=== PATIENT | female | born 1990 | race Caucasian/White ===

== ENCOUNTER 2017-03-21 11:36 | Outpatient (CLI) | payer SELFPAY | END 2017-03-21 11:37 | disposition critical access hospital (66) | LOC: EMS 11:36 | PROVIDERS: ATTEND Surgery | DX: R10.9 Unspecified abdominal pain (principal) | CPT/HCPCS: A0425; A0429 ==

== ENCOUNTER 2017-11-15 07:56 | Outpatient (CLI) | payer OTHER ==
[2017-11-15 13:28] LABS: ALBUMIN 4.1 g/dL (3.2-5.5); ALBUMIN/GLOBULIN RATIO 1.4 (1.0-2.2); BILIRUBIN,TOTAL 0.5 mg/dL (0.2-1.0); CALCIUM 8.9 mg/dL (8.5-10.3); CREATININE 0.7 mg/dL (0.4-1.0); TOTAL PROTEIN 7.1 g/dL (6.7-8.2)
[2017-11-15 14:29] LABS: BASOPHILS # (AUTO) 0.1 10^3/uL (0.0-0.1); BASOPHILS % (AUTO) 0.7 %; EOSINOPHILS # (AUTO) 0.3 10^3/uL (0.0-0.7); EOSINOPHILS % (AUTO) 3.2 %; LYMPHOCYTES # (AUTO) 2.4 10^3/uL (1.5-3.5); LYMPHOCYTES % (AUTO) 29.8 %; MEAN CORPUSCULAR HGB CONC 32.9 g/dL (32.0-36.0); MEAN CORPUSCULAR VOLUME 91.1 fL (81.0-99.0); MEAN PLATELET VOLUME 8.7 fL (7.9-10.8); MONOCYTES # (AUTO) 0.6 10^3/uL (0.0-1.0); MONOCYTES % (AUTO) 7.4 %; NEUTROPHILS # (AUTO) 4.7 10^3/uL (1.5-6.6); NEUTROPHILS % (AUTO) 58.9 %; PLT - PLATELET COUNT 254 10^3/uL (130-450); RED BLOOD COUNT 4.66 10^6/uL (4.20-5.40); RED CELL DISTRIBUTION WIDTH 12.4 % (12.0-15.0)
== END 2017-11-15 07:57 | disposition home or self-care (01) ==
LOC: LAB.N 07:56
PROVIDERS: ATTEND Family Medicine
DX: R25.9 Unspecified abnormal involuntary movements (principal); R53.83 Other fatigue
CPT/HCPCS: 36415; 80053; 84443; 85025

== ENCOUNTER 2017-11-26 19:03 | Outpatient (CLI) | payer OTHER ==
--- NOTE | 2017-11-27 10:55 | Ultrasound Report ---
Procedure Date: 11/26/2017 Accession Number: [id number] / [id number] Procedure: US - Pelvic w/Transvaginal CPT Code: FULL RESULT: EXAM: Pelvic w/Transvaginal DATE: 11/26/2017 8:05 PM CLINICAL HISTORY: BENIGN NEOPLASM OF RT OVARY COMPARISON: Pelvic ultrasound 03/21/2017. TECHNIQUE: Realtime transabdominal imaging performed to identify the uterus and adnexa and as an overview of other pelvic structures, followed by transvaginal imaging for better assessment of the endometrium and/or adnexa, with static image documentation. FINDINGS: Uterus: 8.7 x 2.9 x 3.8 cm, volume 50.1 cc. Anteverted position. Normal overall size and echotexture. Masses: None. Endometrium: Measurement is limited by indwelling intrauterine device, approximately 20 mm. The endometrium is otherwise unremarkable. Cervix: Unremarkable. Right Ovary/Adnexa: 2.0 x 2.3 x 2.2 cm, volume 5.3 cc. Normal echotexture. Blood flow is present. No adnexal mass is seen. Left Ovary/Adnexa: 7.7 x 6.7 x 7.2 cm, volume 195 cc. Echotexture of the ovary proper is normal with expected blood flow on color Doppler. The previously identified avascular 7.5 x 5.9 x 7.1 cm hypoechoic left adnexal mass demonstrates uniform echotexture without the typically expected features of a reticular lacelike pattern or fluid fluid level/retractile blood clot and therefore does not meet strict ultrasound criteria for hemorrhagic cyst. Free Fluid: None. Other: None. IMPRESSION: The previously seen 7.5 cm hypoechoic left adnexal mass does not meet strict ultrasound criteria for a hemorrhagic cyst. Definitive characterization by MRI is recommended. RADIA
== END 2017-11-26 19:04 | disposition home or self-care (01) ==
LOC: DI 19:03
PROVIDERS: ATTEND Obstetrics & Gynecology
DX: D27.0 Benign neoplasm of right ovary (principal)
CPT/HCPCS: 76830; 76856

== ENCOUNTER 2017-12-18 07:35 | Outpatient (CLI) | payer OTHER ==
[2017-12-18] MEDS ORDERED: GADOBUTROL 7.5 MMOL/7.5 ML VIAL ONE (09:25)
[2017-12-18] MEDS ORDERED: GADOBUTROL 7.5 MMOL/7.5 ML VIAL IVP ONE (10:01)
--- NOTE | 2017-12-18 12:40 | MRI Report ---
Procedure Date: 12/18/2017 Accession Number: [id number] / [id number] Procedure: MRI - Abdomen W/WO CPT Code: FULL RESULT: EXAM: MR ABDOMEN WITH AND WITHOUT CONTRAST MR PELVIS WITH AND WITHOUT CONTRAST EXAM DATE: 12/18/2017 10:59 AM. CLINICAL HISTORY: Mass on ovary. COMPARISON: Pelvic ultrasound from 11/26/2017 and 03/21/2017. TECHNIQUE: Multiplanar breath-hold T1, T2, and DWI sequences obtained through the abdomen and pelvis on an MR scanner. Images obtained before and after administration of 7 mL Gadavist intravenous contrast. FINDINGS: Abdomen: Lung Bases: Lung bases are clear. Included portions of the heart are unremarkable. Liver: The liver has normal size, morphology and signal. No evidence of mass or biliary dilatation. Gallbladder: The gallbladder is partially distended and appears normal with no wall thickening or stone. Pancreas: The pancreas appears normal with no mass or ductal dilatation. Spleen: The spleen appears normal. Kidneys and Adrenals: The kidneys appear normal with no mass or hydronephrosis. There are no cysts in the kidneys. The adrenals appear normal. Bowel: Stomach is mildly distended and unremarkable. Small bowel is minimally fluid-filled without evidence for obstruction. No small bowel wall thickening is identified. No omental or mesenteric nodules or masses. Small to moderate volume of stool in the colon. No diverticulitis. No enlarged retroperitoneal or mesenteric lymph nodes. There is right lower quadrant free fluid. Appendix may be partly visualized by the cecum. Appendix does not appear enlarged. Retroperitoneum: Abdominal aorta and IVC are normal in caliber. No aneurysm. No retroperitoneal adenopathy. Pelvis: Bladder: Urinary bladder is mild to moderately distended and unremarkable. Small to moderate volume of pelvic free fluid. No pelvic adenopathy. No distinct pelvic nodules are identified. No focal soft tissue thickening. Reproductive Organs: The uterus is anteverted and measures 7.9 x 3.6 x 4.2 cm. Endometrial thickness measures 5 mm. An intrauterine device is present centrally located in the endometrial cavity in expected position. Cervical mucosal contour appears unremarkable. Right ovary measures 2.7 x 2.5 x 2.9 cm. Within the right ovary a thick-walled cyst measuring 2.2 x 1.7 x 2.2 cm which may represent a complex follicular or corpus luteal cyst. Adjacent free fluid. The left ovary measures 7.3 x 7.2 x 7.3 cm. Nearly the entire left ovary is occupied by a cystic lesion measuring 6.7 x 6.5 x 5.9 cm, T1 hyperintense and T2 mildly hyperintense and heterogeneous signal intensity with T2 shading. Thin septation is seen right laterally. No abnormal enhancement of this septation is identified. No nodules are identified. The cystic lesion on the ultrasound measured 7.5 x 5.9 x 7.17 m on compared to the ultrasound from 11/26/2017 and has increased in size compared to the 03/21/2017 ultrasound. No osseous lesions are identified. Mild disk desiccation in the lower lumbar spine. IMPRESSION: MR abdomen: 1. No solid organ lesions. 2. No abdominal adenopathy. 3. No omental or mesenteric nodules. MR pelvis: 1. Left ovarian cystic lesion measuring 6.7 cm most most likely representing an endometrioma rather than a hemorrhagic cyst. 2. Right ovarian 2.2 cyst favoring a corpus luteal or follicular cyst. 3. Small to moderate volume of pelvic free fluid. 4. Intrauterine device in expected position. 5. No pelvic adenopathy. No nodules are seen within the pelvis. RADIA
== END 2017-12-18 07:36 | disposition home or self-care (01) ==
LOC: DI 07:35
PROVIDERS: ATTEND Obstetrics & Gynecology
DX: N83.9 Noninflammatory disorder of ovary, fallopian tube and broad ligament, unspecified (principal); N83.202 Unspecified ovarian cyst, left side; N83.201 Unspecified ovarian cyst, right side
CPT/HCPCS: 72197; 74183; A9585

== ENCOUNTER 2017-12-18 07:45 | Outpatient (CLI) | payer OTHER | END 2017-12-18 07:46 | disposition home or self-care (01) | LOC: DI 07:45 | PROVIDERS: ATTEND Obstetrics & Gynecology | DX: N83.9 Noninflammatory disorder of ovary, fallopian tube and broad ligament, unspecified (principal) ==

== ENCOUNTER 2018-01-08 10:24 | Outpatient (CLI) | payer OTHER ==
[2018-01-08 11:08] LABS: BASOPHILS # (AUTO) 0.1 10^3/uL (0.0-0.1); BASOPHILS % (AUTO) 0.8 %; EOSINOPHILS # (AUTO) 0.2 10^3/uL (0.0-0.7); EOSINOPHILS % (AUTO) 2.3 %; HGB - HEMOGLOBIN 14.8 g/dL (12.0-16.0); LYMPHOCYTES # (AUTO) 1.8 10^3/uL (1.5-3.5); LYMPHOCYTES % (AUTO) 19.5 %; MEAN CORPUSCULAR HEMOGLOBIN 30.5 pg (27.0-31.0); MEAN CORPUSCULAR HGB CONC 34.5 g/dL (32.0-36.0); MEAN CORPUSCULAR VOLUME 88.5 fL (81.0-99.0); MEAN PLATELET VOLUME 8.5 fL (7.9-10.8); MONOCYTES # (AUTO) 0.6 10^3/uL (0.0-1.0); MONOCYTES % (AUTO) 6.2 %; NEUTROPHILS # (AUTO) 6.4 10^3/uL (1.5-6.6); NEUTROPHILS % (AUTO) 71.2 %; PLT - PLATELET COUNT 237 10^3/uL (130-450); RED BLOOD COUNT 4.84 10^6/uL (4.20-5.40); RED CELL DISTRIBUTION WIDTH 12.9 % (12.0-15.0)
[2018-01-08 11:32] LABS: BILIRUBIN,URINE NEGATIVE (NEGATIVE); GLUCOSE, URINE (UA) NEGATIVE (NEGATIVE); KETONES,URINE (UA) NEGATIVE (NEGATIVE); LEUKOCYTE ESTERASE, URINE NEGATIVE (NEGATIVE); NITRITE,URINE NEGATIVE (NEGATIVE); OCCULT BLOOD,URINE NEGATIVE (NEGATIVE); PH,URINE 6.5 PH (5.0-7.5); PROTEIN,URINE NEGATIVE (NEGATIVE); UROBILINOGEN,URINE 0.2 (NORMAL) E.U./dL (NORMAL)
[2018-01-08 11:37] LABS: CLARITY,URINE CLEAR (CLEAR); HCG UR QUAL NEGATIVE
== END 2018-01-08 10:25 | disposition home or self-care (01) ==
LOC: LAB 10:24
PROVIDERS: ATTEND Obstetrics & Gynecology
DX: Z01.812 Encounter for preprocedural laboratory examination (principal); N83.9 Noninflammatory disorder of ovary, fallopian tube and broad ligament, unspecified
CPT/HCPCS: 36415; 81003; 81025; 85025; 86304; 86850; 86900; 86901

== ENCOUNTER 2018-01-09 06:13 | Day surgery (SDC) | payer OTHER ==
--- NOTE | 2018-01-08 12:38 | PREOP HISTORY & PHYSICAL ---
DATE OF SERVICE: 01/09/2018 Physician: Perico Fregoso MD PREOPERATIVE HISTORY AND PHYSICAL ON 01/08/2018 FOR ANTICIPATED DATE OF 01/09/2018 IDENTIFICATION: Patient is a 27-year-old, G1, P1 female. CHIEF COMPLAINT: Left lower quadrant pain. HISTORY OF PRESENT ILLNESS: Patient has noted over the last year increasing left lower quadrant pain . She has had both a CT and an MRI, which shows evidence of a 6.7 left ovarian cyst. This is compat ible with an endometrioma. She is presenting for surgical removal. PAST MEDICAL HISTORY: Patient denies any hypertensive, diabetic, cardiac, or pulmonary disease. SURGICAL HISTORY: Positive for tonsils and adenoidectomy. ALLERGIES: NONE KNOWN. CURRENT MEDICATIONS: None. HABITS: Patient smokes 10 cigarettes per day, has alcohol occasionally; denies use of any street or addictive drugs or tetrahydrocannabinol. SOCIAL HISTORY: Patient is engaged, works in a gym. FAMILY HISTORY: Positive for a grandmother with breast cancer. REVIEW OF SYSTEMS: Unremarkable. PHYSICAL EXAMINATION GENERAL: Patient is a well-developed, well-nourished, white female. She is in no acute distress at this time. VITAL SIGNS: Blood pressure is 120/80. BMI is 28.4. HEENT: Pupils are equal, round. Extraocular muscles are intact. There is no evidence of any sclera l icterus. Thyroid is not palpably enlarged. Mouth is clear. HEART: Regular rate and rhythm without murmurs. LUNGS: Lung blanton are clear without rales or wheezes. BACK: No spinal or CVA tenderness. ABDOMEN: Exam shows some vague left lower quadrant tenderness. PELVIS: On pelvic examination done previously, she has a fullness in the left adnexa. This is tende r to palpation. IMPRESSION 1. A 27-year-old, G1, P0 female. 2. A 6.7 cm left endometrioma. PLAN: We will perform laparoscopic removal of endometrioma. We will try and maintain ovary if at al l possible. Risks and benefits have been explained to patient including those but not limited to ble eding, infection, injury to the pelvic organs which include the uterus, tubes, ovaries, bowel, bladde r, and ureters. She is aware of the potential for DVT with PE, as well as postop adhesions which cou ld cause pain, bowel obstruction, and infertility. I have also explained to her the possibility of n kyle to open. TD: 01/08/2018 09:55
[2018-01-09] MEDS ORDERED: ceFAZolin 2 GM/50 ML 2 GM/50 ML BAG IV ONE (06:25)
[2018-01-09] MEDS ORDERED: LACTATED RINGERS 1,000 ML IV ONE ×4 (06:46→11:47)
--- NOTE | 2018-01-09 07:00 | ANESTHESIA ---
Pre-Anesthesia VS, & Labs - Diagnosis Ovarian inflammation - Procedure Lap ovarian cystectomy Vital Signs: Temp Pulse Resp BP Pulse Ox 36.5 C 16 112/67 99 01/09/18 06:34 01/09/18 06:34 01/09/18 06:34 01/09/18 06:34 Height 5 ft 3 in Weight (kg) 73.3 kg Body Mass Index 27.4 - NPO >8 hours - Is Patient ?: No - Lab Results Lab results reviewed: Yes Home Medications and Allergies Home Medications: Ambulatory Orders Medication Instructions Recorded Confirmed No Known Home Medications [No 01/08/18 01/08/18 Known Home Medications] Allergies/Adverse Reactions: Allergies Allergy/AdvReac Type Severity Reaction Status Date / Time acetaminophen [From Vicodin] AdvReac Emesis Verified 01/09/18 06:43 hydrocodone [From Vicodin] AdvReac Emesis Verified 01/09/18 06:43 Anes History & Medical History - Anesthetic History Anesthesia Complications: reports: No previous complications Family history of Anesthesia Complications: Denies Family history of Malignant Hyperthermia: Denies - Medical History Cardiovascular: reports: None, Other Pulmonary: reports: None Gastrointestinal: reports: None Urinary: reports: None Neuro: reports: Seizure disorder Musculoskeletal: reports: None Endocrine/Autoimmune: reports: None Blood Disorders: reports: None Skin: reports: None Smoking Status: Current every day smoker Psychosocial: reports: No issues indicated, Anxiety - Surgical History Eyes Ears Nose Throat (EENT): Tonsil/Adenoidectomy Exam General: Alert Dental: WNL Mouth Openin Fingerbreadth Neck Mobility: Normal Mallampati classification: I Thyromental Distance: greater than 6 cm Respiratory: Lungs clear Cardiovascular: Regular rate, No murmurs Cognitive Status: Within normal limits Plan Anesthesia Type: General Consent for Procedure(s) Verified and Reviewed: Yes Code Status: Attempt Resuscitation ASA classification: 2-Mild systemic disease Is this case an emergency?: No
[2018-01-09] MEDS ORDERED: PROPOFOL 200 MG/20 ML VIAL IVP ONE (07:30)
[2018-01-09] MEDS ORDERED: SODIUM CHLORIDE 0.9% 10 ML VIAL IV ONE (07:30)
[2018-01-09] MEDS ORDERED: MIDAZOLAM 2 MG/2 ML VIAL IVP ONE (07:30)
[2018-01-09] MEDS ORDERED: ONDANSETRON 4 MG/2 ML VIAL IVP ONE (07:30)
[2018-01-09] MEDS ORDERED: DEXAMETHASONE 4 MG/ML VIAL IVP ONE (07:30)
[2018-01-09] MEDS ORDERED: LIDOCAINE-MPF 2% 5 ML VIAL IM ONE (07:30)
[2018-01-09] MEDS ORDERED: ACETAMINOPHEN 1,000 MG/100 ML 100 ML IV ONE (07:30)
[2018-01-09] MEDS ORDERED: fentaNYL 100 MCG/2 ML VIAL IVP ONE (07:30)
[2018-01-09] MEDS ORDERED: PHENYLEPHRINE 50 MG/5 ML VIAL IV ONE (07:30)
[2018-01-09] MEDS ORDERED: GLYCOPYRROLATE 1 MG/5 ML VIAL IVP ONE (07:30)
[2018-01-09] MEDS ORDERED: NEOSTIGMINE 1 MG/1 ML 10 ML MDV IVP ONE (07:30)
[2018-01-09] MEDS ORDERED: BUPIVACAINE 0.25%-EPI 1:200000 PF 30 ML VIAL ONE (07:33)
[2018-01-09] MEDS ORDERED: BUPIVACAINE 0.25%-EPI 1:200000 PF 30 ML VIAL SUBQ ONE ×2 (08:18)
--- NOTE | 2018-01-09 11:30 | XRAY Report ---
Reason: IUD PLACEMENT CONFIRMATION Procedure Date: 01/09/2018 Accession Number: [id number] / [id number] Procedure: XR - Abdomen 1 View X-Ray CPT Code: 08621 FULL RESULT: EXAM: ABDOMEN RADIOGRAPHY EXAM DATE: 01/09/2018 11:08 AM. CLINICAL HISTORY: IUD placement confirmation. COMPARISON: ABDOMEN W/WO 12/18/2017 9:31 AM. TECHNIQUE: 1 view. FINDINGS: A T-shaped intrauterine device is seen in the right hemipelvis with distortion of the stem greater than expected. Upon correlation with the MRI dated 12/18/2017 where the IUD was appropriately located, the current position may still be intrauterine, but this cannot be determined on a single radiographic projection. IMPRESSION: Intrauterine device projecting over the right hemipelvis. If there is question of interval dislodgment since the previous MRI, recommend transvaginal ultrasound with composite 3-D image to confirm location of this intrauterine device. RADIA
[2018-01-09] MEDS: HYDROmorphone 1 MG/ML CARPUJECT ONE ×2 (11:57→12:04)
[2018-01-09] MEDS ORDERED: ONDANSETRON 4 MG/2 ML VIAL ONE (13:11)
[2018-01-09 13:50] VITALS: BP 132/87
--- NOTE | 2018-01-10 02:58 | OPERATIVE REPORT ---
DATE OF SERVICE: 01/09/2018 Physician: Perico Fregoso MD PREOPERATIVE DIAGNOSES 1. A 6.7 cm left ovarian cyst, probable endometriosis. 2. Mirena intrauterine device in place. POSTOPERATIVE DIAGNOSES 1. A 6.7 cm left ovarian cyst, probable endometriosis. 2. Mirena intrauterine device in place. NAME OF PROCEDURE: Laparoscopic removal of left ovarian cyst lining, lysis of left ovarian adhesions, removal of Mirena intrauterine device. SURGEON: Perico Fregoso MD ANESTHESIA: General via endotracheal tube. ANESTHESIOLOGIST: Jasvir Cisneros CRNA FINDINGS: A 6.7 cm left ovarian cyst compatible with endometrioma, which was tightly adhered to the left pelvic sidewall. The appendix appeared to be normal. The remainder of the pelvis appeared to be free of disease. There were no obvious areas of gross endometriosis. ESTIMATED BLOOD LOSS: 150 mL SPECIMENS TO PATHOLOGY: Left ovarian endometrial cyst wall, Mirena IUD. DESCRIPTION OF PROCEDURE: Following adequate endotracheal anesthesia, the patient was placed in dorsal lithotomy position in [facility]. At this point, a timeout was conducted, and issues were addressed and discussed. She was then prepped and draped in the usual fashion. A speculum was placed in the vagina. The cervix was visualized, grasped with a single-tooth tenaculum anteriorly. Then, the uterus was dilated up to 10 mm. The uterus was noted to be anterior and roughly 9 cm in depth. The cervix was inspected. There were no strings noted, either at the beginning or as the procedure progressed. Polyp forceps were used to try to explore the uterus and strings were not able to be obtained. An IUD string hook was also placed and once again no string was able to be removed. A HUMI manipulator was placed in the cervical os. The balloon was inflated. At this point, the electric fork operator's gloves were changed and, following local anesthesia with 0.25% Marcaine in the subumbilical region, the #15 blade was then used to incise the skin. A 5 mm trocar and sheath were placed under direct visualization. The abdomen was insufflated with CO2. Trocars were placed both in the left and right lower quadrants following skin anesthesia with 0.25% Marcaine and a skin incision with a #11 blade. Both of these were placed under direct visualization. The pelvis was inspected and there was evidence of a large ovarian cyst on the left-hand side. With some difficulty, this was dissected free from the posterior fossa. In the process of doing this , the left ovarian cyst was ruptured, and chocolate-colored material spilled in the abdominal cavity. An scrap hoist operator/aspirator was placed, and this was irrigated away as much as possible. The antimesenteric border of the ovarian cyst was opened using a LigaSure. Cautery was utilized to decrease the risk of bleeding. The cyst wall was grasped with a Prestige clamp and then was teased out of the ovarian tissue. There was a small amount of oozing but no evidence of any obvious bleeding points. The area was carefully inspected and, once again, there was no evidence of any active bleeding. The edges were treated with the LigaSure to decrease any bleeding at this time. The area was then irrigated, both anterior to the uterus, posterior, as well as the cul-de-sac and the ovarian cyst, and this was inspected. No bleeding was noted. The appendix was noted to be normal without disease or adhesions. The diaphragm area, as well as the left diaphragmatic area was irrigated out with saline until clear. At this point, the ovarian cyst was brought through the right lower quadrant incision point, following extension to an 11 port. This was done utilizing an Endo Catch. The right lower incision was closed in the fascia utilizing a Hussein-Merlyn. The skin incisions in both the left and right lower quadrants were closed using 4-0 Monocryl. The CO2 was allowed to escape as much as possible and the subumbilical port was also removed. This was closed using 4-0 Monocryl subcuticular. These were all treated with Dermabond closure. Speculum was placed in the vagina. An x-ray was taken of the pelvis, which did indeed show the Mirena to still be in place, as well as the HUMI catheter. The HUMI catheter was then removed. Then, utilizing a small polyp forceps, the strings were eventually able to be grasped and brought through the incision. The IUD was removed in its totality. The cervix was inspected. Pressure was utilized at the point of the single-tooth tenaculum. No further bleeding was noted. The patient was taken to recovery room in stable condition. The sponge and needle counts were correct. TD: 01/09/2018 13:50 ALEK
== END 2018-01-09 06:14 | disposition home or self-care (01) ==
LOC: SDS 06:13
PROVIDERS: ATTEND Obstetrics & Gynecology
PROC: 0UPD7HZ Removal of Contraceptive Device from Uterus and Cervix, Via Natural or Artificial Opening (ICD-10-PCS; 2018-01-09)
PROC: 0UB14ZZ Excision of Left Ovary, Percutaneous Endoscopic Approach (ICD-10-PCS; principal; 2018-01-09 07:30)
DX: N80.1 Endometriosis of ovary (principal); N83.202 Unspecified ovarian cyst, left side; N73.6 Female pelvic peritoneal adhesions (postinfective); F17.210 Nicotine dependence, cigarettes, uncomplicated; Z30.432 Encounter for removal of intrauterine contraceptive device; Z80.3 Family history of malignant neoplasm of breast; Z86.69 Personal history of other diseases of the nervous system and sense organs
CPT/HCPCS: 58301; 58662; 74018; J0131; J0690; J1170; J7120

== ENCOUNTER 2019-05-08 07:23 | Outpatient (CLI) | payer OTHER | END 2019-05-08 07:24 | disposition EMS.NT | LOC: EMS 07:23 | PROVIDERS: ATTEND Surgery | DX: M79.671 Pain in right foot (principal); R51 Headache; V58.9XXA Unspecified occupant of pick-up truck or van injured in noncollision transport accident in traffic accident, initial encounter; Y92.413 State road as the place of occurrence of the external cause; Z53.29 Procedure and treatment not carried out because of patient's decision for other reasons ==

== ENCOUNTER 2020-10-25 10:10 | Outpatient (CLI) | payer OTHER ==
--- NOTE | 2020-11-03 11:32 | SLEEP CARE CONSULTATION ---
Information from patient questionnaire entered by Sabrina Nieto. I have reviewed and concur with the information entered by Sabrina Nieto. This document represents the service I personally performed and the decisions made by me, Andreia Gupta MD, [facility]. History of Present Illness Service Date and Time: 10/25/2020 1010 Reason for Visit: New patient Chief Complaint: reports: Excessive daytime sleepiness, Fatigue, Frequent awakenings at night Date of Onset: 4 years plus Usual bedtime: 8:30 pm Time it takes to fall asleep: 5 minutes Snores at night: No Observed to quit breathing while asleep: No Number of times waking at night: 4-5 Reasons for waking at night: reports: Other (unknown reason) Toss, Turn, or Twitch while sleeping: Yes Recalls having dreams: Yes (sometimes) Usually gets out of bed at: 6:30 am Feels refreshed in the morning: No Morning headache: Yes (sometimes, resolves mid-morning) Sleepy or fatigued during the day: Yes Ever fallen asleep while driving: No Takes day naps: Yes Dreams during day naps: Yes Additional HPI information: I have the pleasure of seeing Ms. Tim today regarding the possibility of her having obstructive sleep apnea. As you know, she is a 30 year old lady who complains of frequent awakenings and excessive daytime sleepiness. She is being evaluated for possible seizure and her neurologist recommended a sleep study. The patient tells me that she normally goes to bed around 8:30 pm, and it takes her approximately 5 minutes to fall asleep. She has not been told that she snores loudly or irregularly at night. She has never been observed to stop breathing in her sleep. Presently, she sleeps alone. She can recall waking up on the average of 4 - 5 times during the night. Most of the time she wakes up because of unknown reasons. She has never awakened because of her own snoring, choking, or having to gasp for air. There is a lot of tossing and turning in her sleep. She has somniloquy (sleep talking) buy not somnambulism (sleep walking). Generally she can recall having dreams. In the morning she usually gets up out of the bed around 6:30 a.m. not feeling refreshed nor rested. She occasionally has a morning headache that goes away by mid-morning. During the day she complains of feeling sleepy and fatigued. Her score on Ackerly Sleepiness Scale is 13 out of 24. She never has fallen asleep while driving nor has had any accident due to sleepiness. She usually takes naps during the day. Naps are refreshing. Upon falling asleep during the day she reports having dreams. She reports having sleep paralysis and cataplexy. She describes feeling suddenly weak at her knees when laugh, angry, or emotional. She reports having impaired concentration during the day. - Parasomnia Symptoms Ever been unable to move upon waking from sleep: Yes Walks in sleep: No Talks in sleep: Yes Ever felt weak in the knees when startled or emotional: Yes Bothered by creepy, crawly, restless sensations in legs: No Problems with memory or concentration: Yes Subjective Initial Ackerly Sleepiness Scale score: 13 (in 2020) Past Medical History Past Medical History: reports: Anxiety, Depression Social History The patient's occupation is a [employer]. Patient is Single and lives in [place]. Have you smoked in the past 12 months: Yes Cigarettes per day (20/pack): 6 Years of smokin Smoking Pack Years: 3.0 Alcohol use: Yes Alcohol amount and frequency: 2-3 drinks 1-2 days a week Caffeine use: Yes Caffeine amount and frequency: 1-2 drinks daily Family History Family history of sleep disordered breathing: Yes Family Hx Sleep Apnea: Father: Snoring Allergies and Home Medications Drug allergies reviewed: Yes Home medication list reviewed: Yes (none) Review of Systems Weight gain over past 5 years: 20 Cardiovascular: reports: palpitations Respiratory: denies: shortness of breath, wheeze, sputum production, chronic cough, other Gastrointestinal: denies: heartburn, difficulty swallowing, nausea, vomitting, diarrhea, abdominal pain, other Urinary: denies: incontinence, frequency, urgency, impotence, other Neurological: denies: headaches, seizure, head trauma, disorientation, speech dysfunction, gait or balance problems, fainting or unconsciousness, other Psychiatric: reports: anxiety, depression Ear/Nose/Throat: reports: tonsillectomy, wisdom teeth removed Endocrine: reports: sluggishness Musculoskeletal: denies: joint pain, neck pain, back pain, joint swelling, muscle pain or cramping, mobility problems, other Immunologic: denies: sneezing, rash, itching, allergies to food or environment, other Physical Exam Height: 5 ft 3 in Weight: 170 lb Body Mass Index: 30.1 BMI Classification: Obese Impression and Plan IMPRESSION: 1. Narcolepsy, with cataplexy, given her symptoms of excessive daytime sleepiness, hypnagogia, sleep paralysis, and cataplexy. The patient does get adequate sleep at night. An in-laboratory polysomnography will be ordered along with multiple sleep latency test (MSLT). Plan: 1. Schedule polysomnography +/- multiple sleep latency test (MSLT) 2. Avoid long distance driving or when feeling sleepy. 3. Return for a follow up after the sleep study. Visit Type: In Office Time Spent with Patient (minutes): 15 Provider Statement: I spent 100% of the Face to Face Visit with the patient with greater than 50% spent counseling the patient and coordination of care.
== END 2020-10-25 10:11 | disposition home or self-care (01) ==
LOC: SC 10:10
PROVIDERS: ATTEND Internal Medicine Pulmonary Disease
DX: G47.411 Narcolepsy with cataplexy (principal); G47.10 Hypersomnia, unspecified; G47.53 Recurrent isolated sleep paralysis; F17.210 Nicotine dependence, cigarettes, uncomplicated; E66.9 Obesity, unspecified; Z68.30 Body mass index [BMI] 30.0-30.9, adult
CPT/HCPCS: 99202; 99212

== ENCOUNTER 2021-02-18 07:00 | Outpatient (CLI) | payer OTHER | END 2021-02-18 23:59 | disposition home or self-care (01) | LOC: LAB 07:00 | PROVIDERS: ATTEND Family Medicine | DX: R05.9 Cough, unspecified (principal); Z20.822 Contact with and (suspected) exposure to COVID-19 ==

== ENCOUNTER 2021-06-28 08:00 | Outpatient (CLI) | payer OTHER ==
[2021-06-28 19:33] LABS: CHLAMYDIA TRACHOMATIS DNA NEGATIVE (NEGATIVE); NEISSERIA GONORRHOEAE DNA NEGATIVE (NEGATIVE); TRICHOMONAS VAGINALIS DNA NEGATIVE (NEGATIVE)
== END 2021-06-28 23:59 | disposition home or self-care (01) ==
LOC: LAB.WC 08:00
PROVIDERS: ATTEND Obstetrics & Gynecology
DX: Z11.3 Encounter for screening for infections with a predominantly sexual mode of transmission (principal)
CPT/HCPCS: 87491; 87591; 87661

== ENCOUNTER 2022-02-21 08:00 | Outpatient (CLI) | payer OTHER ==
[2022-02-21 12:27] LABS: BILIRUBIN,URINE NEGATIVE (NEGATIVE); GLUCOSE, URINE (UA) NEGATIVE (NEGATIVE); KETONES,URINE (UA) NEGATIVE (NEGATIVE); LEUKOCYTE ESTERASE, URINE NEGATIVE (NEGATIVE); NITRITE,URINE NEGATIVE (NEGATIVE); OCCULT BLOOD,URINE NEGATIVE (NEGATIVE); PH,URINE 6.5 PH (5.0-7.5); PROTEIN,URINE NEGATIVE (NEGATIVE); UROBILINOGEN,URINE 0.2 (NORMAL) E.U./dL (NORMAL)
[2022-02-21 12:28] LABS: CLARITY,URINE CLEAR (CLEAR)
[2022-02-21 12:59] LABS: BACTERIA,URINE Few /HPF (None Seen); RBC,URINE 0-5 /HPF (0-5); SQUAMOUS EPITHELIAL CELL,UR FEW Squamous (<= Few); WBC,URINE 0-3 /HPF (0-5)
[2022-02-21 20:57] LABS: CHLAMYDIA TRACHOMATIS DNA NEGATIVE (NEGATIVE); NEISSERIA GONORRHOEAE DNA NEGATIVE (NEGATIVE); TRICHOMONAS VAGINALIS DNA NEGATIVE (NEGATIVE)
== END 2022-02-21 23:59 | disposition home or self-care (01) ==
LOC: LAB.WC 08:00
PROVIDERS: ATTEND Nurse Practitioner
DX: Z34.90 Encounter for supervision of normal pregnancy, unspecified, unspecified trimester (principal); Z36.89 Encounter for other specified antenatal screening
CPT/HCPCS: 81001; 87086; 87491; 87591; 87661

== ENCOUNTER 2022-03-13 16:43 | Outpatient (CLI) | payer BC | END 2022-03-13 16:44 | disposition home or self-care (01) | LOC: LAB.N 16:43 | PROVIDERS: ATTEND Nurse Practitioner | DX: O20.9 Hemorrhage in early pregnancy, unspecified (principal) | CPT/HCPCS: 36415; 84702 ==

== ENCOUNTER 2023-01-02 11:47 | Outpatient (CLI) | payer BC ==
--- NOTE | 2023-01-02 23:04 | Ultrasound Report ---
PROCEDURE: Head or Neck Soft Tissue INDICATIONS: THROAT SWELLING TECHNIQUE: Real-time scanning was performed of the thyroid gland, with image documentation. COMPARISON: None FINDINGS: Right: Thyroid lobe measures 4.3 x 1.3 x 1.4 cm, and is homogeneous in echotexture. Left: Thyroid lobe measures 4.6 x 1.4 x 1.3 cm, and is homogenous in echotexture. Isthmus: 3.3 mm thick. Thyroid echotexture is homogeneous without focal mass lesion IMPRESSION: Normal ultrasound of the thyroid Reviewed by: Daniel Gonzalez MD on 01/02/2023 10:02 PM DUSTIN Approved by: Daniel Gonzalez MD on 01/02/2023 10:02 PM DUSTIN Station ID: [id number]
== END 2023-01-02 11:48 | disposition home or self-care (01) ==
LOC: DI 11:47
PROVIDERS: ATTEND Registered Nurse
DX: R22.1 Localized swelling, mass and lump, neck (principal)

== ENCOUNTER 2023-03-08 17:00 | Outpatient (CLI) | payer BC ==
--- NOTE | 2023-03-09 14:11 | Ultrasound Report ---
PROCEDURE: Pelvic w/Transvaginal INDICATIONS: IRREGULAR PERIODS TECHNIQUE: Real-time scanning was performed of the pelvic organs, with image documentation. Additional endovagi nal scanning was necessary due to incomplete visualization of the adnexal and endometrial structures by transabdominal scanning. COMPARISON: None. FINDINGS: Uterus: Uterus is anteverted and normal in size at 7.1 x 3.7 x 4.3 cm. The myometrium is homogeneou s. The endometrium measures 3 mm in combined thickness. Benign nabothian cysts are present. Ovaries: The right ovary measures 2.9 x 2 x 2.6 cm, with a calculated ovarian volume of 8 cc. The l eft ovary measures 2.3 x 1.7 x 1.7 cm, with a calculated ovarian volume of 3 cc. The ovaries have a normal sonographic appearance. Less than 12 follicles can be seen in each ovary. No adnexal masses are seen. No cystic lesions measuring greater than 3 cm. Other: No pathologic free abdominal or pelvic fluid. IMPRESSION: Unremarkable pelvic ultrasound. Reviewed by: Juliocesar Cabrera on 03/09/2023 2:10 PM PDT Approved by: Juliocesar Cabrera on 03/09/2023 2:10 PM PDT Station ID: [id number]
== END 2023-03-08 17:01 | disposition home or self-care (01) ==
LOC: DI 17:00
PROVIDERS: ATTEND Nurse Practitioner
DX: N92.6 Irregular menstruation, unspecified (principal)

== ENCOUNTER 2023-03-23 14:40 | Outpatient (CLI) | payer BC ==
--- NOTE | 2023-03-23 15:30 | Sleep Patient Instructions ---
Sleep Center Visit Summary - Patient Visit Information Reason for Visit: Follow Up in Sleep Care - Patient Instructions Additional Instructions: You will be completing a sleep study. You will follow-up in the sleep care office after the sleep study is completed to hear the results and talk about therapy, if needed. You will be called by our office staff to schedule this appointment, but you may contact us with any questions. - Clinic Information Contact: [facility] [address] [place] [address] [email or web address] T: [phone]
--- NOTE | 2023-03-23 15:40 | SLEEP CARE CONSULTATION ---
Information from patient questionnaire entered by Harika Acuña. I have reviewed and concur with the information entered by Harika Acuña. This document represents the service I personally performed and the decisions made by me, Hermelinda Mendez ARNP. History of Present Illness Service Date and Time: 03/23/2023 1440 Previous diagnosis: Other (Never did sleep study - last seen 10/2020) Reason for follow up: annual (Last seen 10/2020, never did sleep study) HPI additional information: I had the pleasure of seeing ZAK MALIK today regarding the possibility of her having a sleep disorder. Her current complaints are excessive daytime sleepiness, fatigue, frequent night awakenings and unrefreshed sleep. The patient tells me that she normally goes to bed around 8:30 pm, and it takes her approximately 2-5 minutes to fall asleep. She has not been told that she snores loudly and irregularly at night. She has not been observed to stop breathing in her sleep. She can recall waking up on the average of 3-5 times during the night, every 2-3 hours during the night. She says she has to physically get out of bed to be able to return to bed and go to sleep. Most of the time she wakes up because of unknown reasons. She has not awakened for her own snoring, choking, and having to gasp for air. There is a lot of tossing and turning in her sleep. Generally she can recall having dreams. She usually wakes up at 0530 ([id number] on weekends) and does not refreshed but does wake up feeling ready to go. After a couple of hours she feels really tired. She will try different things to help her stay awake like drinking water, drinking caffeine drinks, etc. She feels like she has to be busy to keep from falling asleep. She feels like she has a constant "cloudy" feeling in her head. She usually occasionally has a morning headache. During the day she complains of feeling fatigued. She has never fallen asleep while driving nor has any accident due to sleepiness. She usually gets usually about 2 naps, 20 minutes at lunch and right after work. If she naps, upon falling asleep during the day she admits to having vivid dreams. She reports having impaired concentration during the day. There is no somniloquy (sleep talking) or somnambulism (sleep walking). She has experienced sleep paralysis (infrequent), cataplexy (has not fallen but has had to place herself on the ground, sometimes with bouts of laughter), but no symptoms of restless leg syndrome. The muscles around mouth will twitch and knees will give out. Subjective Initial [place] Sleepiness Scale score: 13 (in 2020) Current [place] Sleepiness Scale score: 17 (03/23/2023) Allergies and Home Medications Known drug allergies: Yes (as listed) Drug allergies reviewed: Yes Home medication list reviewed: Yes Allergy and home medication list: Allergies acetaminophen [From Vicodin] Adverse Reaction (Verified 03/22/23 15:01) Emesis hydrocodone [From Vicodin] Adverse Reaction (Verified 03/22/23 15:01) Emesis Medications: Wellbutrin for anxiety and depression Review of Systems Review of systems same as previous: Yes ( no changes) Physical Exam Vital signs obtained and entered by: Hermelinda Danielson NP Blood Pressure: 120/69 Cuff size: wrist (right) Heart Rate: 78 O2 Saturation: 96 Height: 5 ft 3 in Weight: 192 lb 6.4 oz Body Mass Index: 34.0 BMI Classification: Obese Mouth and throat: normal Soft palate: normal Hard palate: normal Uvula: normal Uvula visualization: 100% Mallampati Class I Tongue: normal in size Tonsils: absent bilaterally Heart: regular rate and rhythm Lungs: clear bilaterally Impression and Plan 1. Suspected Narcolepsy with cataplexy, as suggested by a history of excessive daytime sleepiness, hypnagogia, sleep paralysis and cataplexy. She has a history of anxiety and depression. I recommend proceeding to polysomnography with MSLT to confirm the diagnosis. I informed the patient of what the sleep studies involve and after some discussion, obtained agreement to proceed. She is taking Wellbutrin for her anxiety and depression. She may need to stop this medication for 2 weeks prior to her test. She voiced understanding. Risks of drowsy driving discussed in detail and patient advised to avoid long distance driving and to pin puller at the first sign of drowsiness. Patient agreed to plan. * Schedule polysomnography with MLST. * Avoid long distance driving or driving when feeling sleepy. * Attempt to lose weight. * Review instructions provided by trained office staff on how to prepare for the sleep study. * Return for follow-up after sleep study completed. Counseling Topics: Weight loss health impact Plan: PSG with MSLT Visit Type: In Office Time Spent with Patient (minutes): 29 Provider Statement: I spent 100% of the Face to Face Visit with the patient with greater than 50% spent counseling the patient and coordination of care.
[2023-03-23 15:45] VITALS: BP 120/69; O2SAT 96
== END 2023-03-23 14:41 | disposition home or self-care (01) ==
LOC: SC 14:40
PROVIDERS: ATTEND Nurse Practitioner Family
DX: G47.10 Hypersomnia, unspecified (principal); R53.83 Other fatigue; G47.8 Other sleep disorders; F32.A Depression, unspecified; Z68.34 Body mass index [BMI] 34.0-34.9, adult; E66.9 Obesity, unspecified
CPT/HCPCS: 99212; 99213

== ENCOUNTER 2023-03-31 08:04 | Outpatient (CLI) | payer BC ==
[2023-03-31 09:36] LABS: THYROID STIMULATING HORMONE 2.82 uIU/mL (0.34-5.60)
[2023-03-31 09:42] LABS: PROLACTIN 20.12 ng/mL
[2023-04-02 12:09] LABS: PROGESTERONE 0.3 ng/mL (.)
[2023-04-03 14:09] LABS: FREE TESTOSTERONE(DIRECT) 5.5 pg/mL (0.0-4.2); SEX HORM BINDING GLOB SERUM 43.1 nmol/L (24.6-122.0)
[2023-04-04 13:11] LABS: CARDIOLIPIN IGA <9 APL U/mL (0-11)
== END 2023-03-31 08:05 | disposition home or self-care (01) ==
LOC: LAB 08:04
PROVIDERS: ATTEND Nurse Practitioner
DX: O03.9 Complete or unspecified spontaneous abortion without complication (principal); N92.6 Irregular menstruation, unspecified
CPT/HCPCS: 36415; 81241; 82397; 82627; 82670; 83001; 83002; 83498; 84144; 84146; 84270; 84402; 84403; 84443; 86147

== ENCOUNTER 2023-05-10 19:30 | Outpatient (CLI) | payer BC | END 2023-05-10 19:31 | disposition home or self-care (01) | LOC: SC 19:30 | PROVIDERS: ATTEND Nurse Practitioner Family | DX: G47.61 Periodic limb movement disorder (principal) | CPT/HCPCS: 95810 ==

== ENCOUNTER 2023-05-11 07:22 | Outpatient (CLI) | payer BC | END 2023-05-11 07:23 | disposition home or self-care (01) | LOC: SC 07:22 | PROVIDERS: ATTEND Nurse Practitioner Family | DX: G47.10 Hypersomnia, unspecified (principal) | CPT/HCPCS: 95805 ==

== ENCOUNTER 2023-05-11 08:00 | Outpatient (CLI) | payer BC ==
[2023-05-11 14:31] LABS: AMPHETAMINE SCREEN,URINE NEGATIVE (NEGATIVE); BARBITURATE SCREEN,UR NEGATIVE (NEGATIVE); BENZODIAZEPINES SCREEN, URINE NEGATIVE (NEGATIVE); BUPRENORPHINE SCREEN, URINE NEGATIVE (NEGATIVE); COCAINE SCREEN URINE NEGATIVE (NEGATIVE); METHADONE SCREEN, URINE NEGATIVE (NEGATIVE); METHAMPHETAMINES SCREEN, URINE NEGATIVE (NEGATIVE); OPIATE SCREEN, URINE NEGATIVE (NEGATIVE); OXYCODONE SCREEN, URINE NEGATIVE (NEGATIVE); THC CANNABINOID SCREEN, URINE NEGATIVE (NEGATIVE); TRICYCLIC ANTIDEPRESSANT,URINE NEGATIVE (NEGATIVE)
== END 2023-05-11 23:59 | disposition home or self-care (01) ==
LOC: LAB.N 08:00
PROVIDERS: ATTEND Internal Medicine Pulmonary Disease
DX: G47.10 Hypersomnia, unspecified (principal)
CPT/HCPCS: 80306

== ENCOUNTER 2023-06-04 13:09 | Outpatient (CLI) | payer BC ==
[2023-06-18 22:25] VITALS: BP 123/79; O2SAT 96
--- NOTE | 2023-06-18 22:25 | SLEEP CARE CONSULTATION ---
Information from patient questionnaire entered by Karey Turk. I have reviewed and concur with the information entered by Karey Turk. This document represents the service I personally performed and the decisions made by me, Andreia Gupta MD, [facility]. History of Present Illness Service Date and Time: 06/04/2023 1309 Initial [place] Sleepiness Scale score: 13 (in 2020) Current [place] Sleepiness Scale score: 15 (06/04/23) Additional HPI information: Ms. Tim returned for follow up of the in-laboratory polysomnography and multiple sleep latency test (MSLT) she The polysomnography showed that the patient had normal sleep efficiency. The sleep architecture was abnormal for very short REM onset, sleep fragmentation and reduced amount of time spent in slow wave sleep (N3). Respiratory monitoring showed no significant sleep disordered breathing (AHI = 3.2) or hypoxia (temo oxygen saturation of 87% and only 0.15% to the total sleep time was spent with oxygen saturation below 90%). The few respiratory events occurred independently of sleep stage and body position (supine AHI = 3.2; non-supine = 3.07). Snore was light to loud in intensity. There was severe periodic leg movement of sleep contributing to the sleep fragmentation. Cardiac rhythm was normal sinus rhythm without significant arrhythmia. No abnormal behavior (parasomnia) observed during the night. The multiple sleep latency test (MSLT) showed a mean sleep latency of 0.5 minute and sleep onset REM period in all 4 naps. The patient was informed of these findings. I explained to her that the tests are highly suggestive of narcolepsy. The patient also reports cataplexy, sleep paralysis, and hypnagogia. She describes buckling at her knees when laughing. No injuries have occurred because of cataplexy. She is not taking any control pills because she is trying to get . No family history of narcolepsy. Sleep Study - Results Type of Sleep Study: Polysomnography (MULTIPLE SLEEP LATENCY TEST COMPLETED 05/11/23) Allergies and Home Medications Drug allergies reviewed: Yes Home medication list reviewed: Yes Allergy and home medication list: Allergies acetaminophen [From Vicodin] Adverse Reaction (Verified 05/31/23 17:00) Emesis hydrocodone [From Vicodin] Adverse Reaction (Verified 05/31/23 17:00) Emesis Review of Systems Review of systems same as previous: Yes (NO CHANGE) Physical Exam Vital signs obtained and entered by: KAREY Gardner MA Blood Pressure: 123/79 (LEFT ARM) Cuff size: regular Heart Rate: 74 O2 Saturation: 96 Height: 5 ft 3 in Weight: 196 lb 4.8 oz Body Mass Index: 34.7 BMI Classification: Obese Impression and Plan IMPRESSION: 1. Narcolepsy, with cataplexy (type 1). The patient has classic symptoms of narcolepsy. Her polysomnography showed very short REM latency and her multiple sleep latency test (MSLT), sleep onset REM period in all naps. The patient complains of fatigue and excessive daytime sleepiness. She does not want to take any stimulants but is willing to try modafinil on as needed basis. Side effects were discussed. She will not take it if she gets . [facility] narcolepsy brochure given to her for more information. PLAN: 1. Prescription made for modafinil 100 200 mg qam on as needed basis daytime sleep. Do not take the medication if become . 2. Continue with a nap in the afternoon. 3. Allow at least 8 hours for sleeping at night. 4. Return in one month for follow up. I will assess her response to the medication at that time. Prescriptions: Other (modafinil) Follow up with Sleep Care in: 1-2 months Visit Type: In Office Time Spent with Patient (minutes): 15 Provider Statement: I spent 100% of the Face to Face Visit with the patient with greater than 50% spent counseling the patient and coordination of care.
== END 2023-06-04 13:10 | disposition home or self-care (01) ==
LOC: SC 13:09
PROVIDERS: ATTEND Internal Medicine Pulmonary Disease
DX: G47.411 Narcolepsy with cataplexy (principal)
CPT/HCPCS: 99212